=== PATIENT | male | born 1950 | race Caucasian/White ===

== ENCOUNTER → 2021-10-29 09:06 | Outpatient (BNVA) | payer MEDICARE, SELFPAY | PROVIDERS: PCP Internal Medicine; Visit Provider Internal Medicine Cardiovascular Disease | DX: I48.0 Paroxysmal atrial fibrillation (principal); I10 Essential (primary) hypertension; Z79.899 Other long term (current) drug therapy | CPT/HCPCS: 93005; 99202 ==

== ENCOUNTER → 2021-12-01 14:19 | Outpatient (REF) | payer MEDICARE, SELFPAY ==
--- NOTE | 2021-12-01 14:28 | CA_ITS ---
Transthoracic Echocardiogram Patient (Last, First, Middle): Konstantin Quintero, Gender: Male Date of : 1950 Age: 71 Procedure Date: 12/01/2021 Procedure Type: Transthoracic Echocardiogram Location: OP Height: 177.8 cm Weight: 99.79 kg BSA: 2.17 m2 Heart Rate: 94 bpm BP: 117 / 85 mmHg Patient Financial Counselor: TOMI Referring MD: Demario Stanford MD Linux Engineer: Demario Stanford MD Symptoms: I48.0 - Paroxysmal atrial fibrillation Study Quality: Adequate ECG Rhythm: Atrial Fibrillation Conclusions: - Normal left ventricular size and systolic function. There is mildly increased left ventricular wall thickness. The visually estimated ejection fraction is between 55-60%. - Normal right ventricular cavity size and systolic function. - The left atrium is mildly dilated. The right atrium is normal in size. Findings Left Ventricle Normal left ventricular size and systolic function. There is mildly increased left ventricular wall thickness. The visually estimated ejection fraction is between 55-60%. There is no evidence of regional wall motion abnormalities. Diastolic function is indeterminate on the basis of available data. Right Ventricle Normal right ventricular cavity size and systolic function. Atria The left atrium is mildly dilated. The right atrium is normal in size. Aortic Valve Normal aortic valve structure and function. There is no aortic valve stenosis. There is no aortic valve regurgitation. Mitral Valve Normal mitral valve structure and function. There is trace mitral valve regurgitation. There is no mitral valve stenosis. Pulmonic Valve The pulmonic valve is likely normal. There is no pulmonic valve regurgitation. Tricuspid Valve Normal tricuspid valve structure. There is trace tricuspid valve regurgitation. Normal right atrial pressure. There is no evidence of pulmonary hypertension. Great Vessels All visible segments of the aorta are normal in size. The visualized portions of the pulmonary artery and branches are normal. Venous The inferior vena cava is normal in size and collapses greater than 50% with inspiration. Pericardium/Pleural There is no evidence of pericardial effusion. Prior Study Comparison No prior study available for comparison. Measurements 2D Linear Measurements IVSd: 1.13 0.6-0.9/0.6-1.0 cm LVIDd: 3.91 3.9-5.3/4.2-5.9 cm LVIDd Index: 1.80 2.4-3.2/2.2-3.1 cm/m2 LVIDs: 2.81 2.0-3.6 cm LVPWd: 1.17 0.7-1.1 cm LA Diam: 3.90 2.7-3.8/3.0-4.0 cm LAIDs Index: 1.80 1.5-2.3 cm/m2 LV Mass: 186.89 67-162/88-224 g LV Mass Index: 86.13 43-95/49-115 g/m2 LVOT Diam: 2.10 3.0+(-)1.3 cm 2D Systolic Function EF 4C: 45.90 >55% EF 2C: 55.90 >55% EF BiP: 50.60 >55% Aortic Valve AoV Pk Wallace: 1.24 AoV Mn Wallace: 0.87 AoV VTI: 0.20 AoV Pk Grad: 6.00 Aov Mn Grad: 3.00 NATALIE Cont.VTI: 2.96 LVOT LVOT Pk Wallace: 0.98 LVOT Mn Wallace: 0.71 LVOT VTI: 0.17 LVOT Pk Grad: 4.00 LVOT Mn Grad: 2.00 LVOT Diam: 2.10 LVOT Area: 3.46 Right Ventricle TAPSE (mm): 20.30 TVS' Wallace: 10.60 Tricuspid Valve TR Pk Wallace: 2.09 TR Pk Grad: 17.00 RA Press: 3.00 RVSP: 20.00 Great Vessels Aorta Sinus of Valsalva: 3.30 2.0-3.5 cm Ao Asc: 3.40 2.1-3.4 cm Pulmonary Valve PV Pk Wallace: 0.78 Peak PV Grad: 2.00 Updated in Other Vendor System with Status of Final Demario Stanford MD electronically signed on 12/02/2021 2:57:17 PM with status of Final
== END ==
LOC: HO.CARD 14:19
PROVIDERS: PCP Internal Medicine; Visit Provider Internal Medicine Cardiovascular Disease
DX: I48.0 Paroxysmal atrial fibrillation (principal)
CPT/HCPCS: 93306

== ENCOUNTER → 2022-02-08 14:43 | Outpatient (BNVA) | payer MEDICARE, SELFPAY | PROVIDERS: PCP Internal Medicine; Visit Provider Internal Medicine Cardiovascular Disease | DX: I48.0 Paroxysmal atrial fibrillation (principal); I10 Essential (primary) hypertension | CPT/HCPCS: 99212 ==

== ENCOUNTER → 2022-09-27 13:36 | Outpatient (BNVA) | payer MEDICARE, BC, SELFPAY | PROVIDERS: PCP Internal Medicine; Referring Provider Internal Medicine; Visit Provider Internal Medicine Cardiovascular Disease | DX: I48.19 Other persistent atrial fibrillation (principal); I10 Essential (primary) hypertension | CPT/HCPCS: 93005; 99212 ==

== ENCOUNTER 2023-04-06 13:46 | Outpatient (AMB) | payer MEDICARE, BC, SELFPAY ==
[2023-04-06 14:14] VITALS: BP 110/60; PULSE 108; BMI 31.9
--- NOTE | 2023-04-06 14:14 | A.OFFVIS_ITS ---
Intake Vital Signs 04/06/23 14:14 Height 5 ft 10 in Weight 222 lb 10.67 oz BMI 31.9 BP 110/60 Blood Pressure Location Lt brachial Position Sitting Pulse 108 H Intake Visit Reasons: 6 month follow up Intake Note: 6 month follow up Cyber Incident Analyst Required: No Accompanied by: Spouse Allergies Penicillins Adverse Reaction (Severe, Verified 04/06/23 14:14) Unresponsive Medication List - Last Reconciled 04/06/23 by Demario Stanford MD apixaban (Eliquis) 5 mg PO BID epinephrine IM hydrochlorothiazide 12.5 mg PO QAM ibuprofen 600 mg PO TID PRN lisinopril 30 mg PO DAILY metoprolol tartrate 12.5 mg (1/2 x 25 mg) PO BID omeprazole 20 mg PO QAM HPI HPI Comments History of Present Illness Details 72-year-old gentleman with background hi story of hypertension who was referred to us for new diagnosis of atrial fibrillation. He developed nausea vomiting and abdominal discomfort. He went to the urgent care where EKG showed atrial fibrillation. He was asymptomatic from atrial fibrillation point of view. He was started on metoprolol and apixaban. He denies chest discomfort, shortness of breath or any symptoms/signs of heart failure. We sent him for echocardiography which showed ejection fraction of 55-60%. On follow-up he continues to be stable and has no symptoms. Blood pressure control is good. Taking medications regularly. We decided to treat him with rate control strategy. He returns for follow-up after many months and continues to be asymptomatic. No chest discomfort shortness of breath. No palpitations. No orthopnea PND. No peripheral edema. 04/06/2023: He returns for follow-up. Anam gaona had infection in his gums and teeth and had pus with bleeding recently. He has seen dentist and he has been told that he needs multiple teeth extracted. Being on apixaban he has been told that he needs to hold it for 2 weeks by 1 office and 1 week by another dental office. He is saying that he is quite anxious about this because he wants his teeth to be removed specially with infection. He has been taking apixaban 5 mg twice a day. Previously had an echocardiogram which showed normal biventricular function. No clinical symptoms of heart failure. [facility] Surgical History History of herniorrhaphy History of total hip arthroplasty Family History Mother Afib Cancer Father Cancer Leukemia Social History Alcohol intake: former Year quit: 2013 Patient Tobacco Use Status: Former Tobacco user Quit Date: 2006 Physical Exam Vital Signs: Last Vital Signs Pulse 108 H 04/06/23 14:14 BP 110/60 04/06/23 14:14 BMI result Body Mass Index 31.9 GENERAL APPEARANCE: in no acute distress, pleasant. NECK: no carotid bruit, no jugular venous distention. SKIN: no suspicious lesions, warm and dry. HEART: no murmurs, irregularly irregular rhythm. LUNGS: clear to auscultation bilaterally. ABDOMEN: soft, nontender. EXTREMITIES: no edema. PERIPHERAL PULSES: equal. NEUROLOGIC: No gross deficits, AAO X 3 Assessment & Plan Assessment & Plan (1) Persistent atrial fibrillation: Code(s): I48.19 - Other persistent atrial fibrillation (2) Essential hypertension: Code(s): I10 - Essential (primary) hypertension Plan Pleasant 72-year-old gentleman who is here for follow-up. He has persistent atrial fibrillation. He is asymptomatic. Blood pressure control is good. He is slightly fast today but quite anxious due to dental infection. I think he should have dental workup done and his teeth extracted. I think holding anticoagulation for 3 days should be enough for that as we do vascular procedures only after holding 48 hours of anticoagulation. Holding it long-term may decrease bleeding risk but it also increases his stroke risk. I do not think he needs bridging with Lovenox currently. Follow-up with us in few months. Thank you for allowing me to participate in the care of your patient. Please feel free to contact me if you have any questions. Coding Level of Care Code Est Pt Level 4 (79876) Diagnoses Persistent atrial fibrillation I48.19 Essential hypertension I10
== END 2023-04-06 14:42 | disposition home or self-care (01) ==
PROVIDERS: PCP Internal Medicine; Visit Provider Internal Medicine Cardiovascular Disease
DX: I48.19 Other persistent atrial fibrillation (principal); I10 Essential (primary) hypertension
CPT/HCPCS: 99214

== ENCOUNTER → 2023-04-06 13:46 | Outpatient (BNVA) | payer MEDICARE, BC, SELFPAY | PROVIDERS: PCP Internal Medicine; Visit Provider Internal Medicine Cardiovascular Disease | DX: I48.19 Other persistent atrial fibrillation (principal); I10 Essential (primary) hypertension | CPT/HCPCS: 99212 ==

== ENCOUNTER 2023-07-18 13:30 | Outpatient (AMB) | payer MEDICARE, BC, SELFPAY ==
--- NOTE | 2023-07-18 13:44 | A.OFFVIS_ITS ---
Intake Vital Signs 07/18/23 13:45 Height 5 ft 10 in Weight 225 lb 4.999 oz BMI 32.3 BP 112/62 Blood Pressure Location Lt brachial Position Sitting Pulse 86 Pulse Source Pulse Oximeter Intake Visit Reasons: 3 mth f/up Intake Note: pt states that he is doing fine. Industrial Pharmacist Required: No Accompanied by: Self / Same As Patient Allergies Penicillins Adverse Reaction (Severe, Verified 04/06/23 14:14) Unresponsive Medication List - Last Reconciled 07/18/23 by Demario Stanford MD apixaban (Eliquis) 5 mg PO BID epinephrine IM hydrochlorothiazide 12.5 mg PO QAM ibuprofen 600 mg PO TID PRN lisinopril 30 mg PO DAILY metoprolol tartrate 12.5 mg (1/2 x 25 mg) PO BID omeprazole 20 mg PO QAM HPI HPI Comments History of Present Illness Details 72-year-old gentleman with background hi story of hypertension who was referred to us for new diagnosis of atrial fibrillation. He developed nausea vomiting and abdominal discomfort. He went to the urgent care where EKG showed atrial fibrillation. He was asymptomatic from atrial fibrillation point of view. He was started on metoprolol and apixaban. He denies chest discomfort, shortness of breath or any symptoms/signs of heart failure. We sent him for echocardiography which showed ejection fraction of 55-60%. On follow-up he continues to be stable and has no symptoms. Blood pressure control is good. Taking medications regularly. We decided to treat him with rate control strategy. He returns for follow-up after many months and continues to be asymptomatic. No chest discomfort shortness of breath. No palpitations. No orthopnea PND. No peripheral edema. 04/06/2023: He returns for follow-up. Anam gaona had infection in his gums and teeth and had pus with bleeding recently. He has seen dentist and he has been told that he needs multiple teeth extracted. Being on apixaban he has been told that he needs to hold it for 2 weeks by 1 office and 1 week by another dental office. He is saying that he is quite anxious about this because he wants his teeth to be removed specially with infection. He has been taking apixaban 5 mg twice a day. Previously had an echocardiogram which showed normal biventricular function. No clinical symptoms of heart failure. 07/18/2023: He returns for follow-up. He had initial workup and has been doing well. He is on apixaban 5 mg twice a day and metoprolol 12.5 mg twice a day. His heart rate is in 80s blood pressure is 112/62. Clinically he is denying any symptoms right now. He had blood workup recently which was also essentially normal. His LDL cholesterol was 110 and I have advised him to continue to diet and exercise. [facility] Surgical History History of herniorrhaphy History of total hip arthroplasty Family History Mother Afib Cancer Father Cancer Leukemia Social History Alcohol intake: former Year quit: 2013 Patient Tobacco Use Status: Former Tobacco user Quit Date: 2006 Review of Systems Const Denies chills, Denies fatigue, Denies fever(s), Denies frequent falls, Denies weakness, Denies weight gain and Denies weight loss ENT Denies dizziness Card Denies chest pain, Denies leg edema, Denies lightheadedness, Denies palpitations, Denies dyspnea and Denies dyspnea on exertion Resp Denies cough, Denies dyspnea and Denies dyspnea on exertion GI Denies hematochezia Musc Denies abnormal gait, Denies muscle weakness, Denies numbness, Denies radiating pain into limb and Denies tingling Neuro Denies abnormal gait, Denies dizziness, Denies frequent falls, Denies numbness, Denies tingling and Denies weakness Endo Denies fatigue and Denies palpitations Physical Exam Vital Signs: Last Vital Signs Pulse 86 07/18/23 13:45 BP 112/62 07/18/23 13:45 BMI result Body Mass Index 32.3 GENERAL APPEARANCE: in no acute distress, pleasant. NECK: no carotid bruit, no jugular venous distention. SKIN: no suspicious lesions, warm and dry. HEART: no murmurs, irregularly irregular rhythm. LUNGS: clear to auscultation bilaterally. ABDOMEN: soft, nontender. EXTREMITIES: no edema. PERIPHERAL PULSES: equal. NEUROLOGIC: No gross deficits, AAO X 3 Assessment & Plan Assessment & Plan (1) Persistent atrial fibrillation: Code(s): I48.19 - Other persistent atrial fibrillation (2) Essential hypertension: Code(s): I10 - Essential (primary) hypertension Plan Pleasant 72 year gentleman who is here for follow-up. He has background history of persistent atrial fibrillation. He is asymptomatic from AFib and currently we are taking a rate control strategy. His blood pressure is not high and he is on metoprolol 12.5 mg twice a day but his heart rate is reasonably controlled. Echocardiography has shown normal biventricular function with mild left atrial dilatation in the past. Clinically he has been doing well. Continue same medications for now. Occasionally he uses ibuprofen but that has not a daily thing and he can try it I have advised him that he should use more Tylenol for aches and pains and ibuprofen. Follow-up with us in 4 months. Thank you for allowing me to participate in the care of your patient. Please feel free to contact me if you have any questions. Coding Level of Care Code Est Pt Level 4 (67889) Diagnoses Persistent atrial fibrillation I48.19 Essential hypertension I10
[2023-07-18 13:45] VITALS: BP 112/62; PULSE 86; BMI 32.3
== END 2023-07-18 14:14 | disposition home or self-care (01) ==
PROVIDERS: PCP Internal Medicine; Visit Provider Internal Medicine Cardiovascular Disease
DX: I48.19 Other persistent atrial fibrillation (principal); I10 Essential (primary) hypertension
CPT/HCPCS: 99214

== ENCOUNTER → 2023-07-18 | Outpatient (BNVA) | payer MEDICARE, BC, SELFPAY | PROVIDERS: PCP Internal Medicine; Visit Provider Internal Medicine Cardiovascular Disease | DX: I48.19 Other persistent atrial fibrillation (principal); I10 Essential (primary) hypertension | CPT/HCPCS: 99212 ==

== ENCOUNTER 2024-04-23 12:42 | Outpatient (AMB) | payer MEDICARE, BC, SELFPAY ==
[2024-04-23 13:20] VITALS: BP 120/66; PULSE 81; BMI 29.9
--- NOTE | 2024-04-23 13:20 | A.OFFVIS_ITS ---
Vital Signs 04/23/24 13:20 Height 5 ft 10 in Weight 208 lb 8.917 oz BMI 29.9 BP 120/66 Blood Pressure Location Lt brachial Position Sitting Pulse 81 Pulse Source Monitor Intake Visit Reasons: r/s 11/30/23 4 mos followup Intake Note: 4 mth f/up Digital Developer Required: No Accompanied by: Self / Same As Patient Allergies Penicillins Adverse Reaction (Severe, Verified 04/06/23 14:14) Unresponsive Medication List - Last Reconciled 04/23/24 by Demario Stanford MD apixaban (Eliquis) 5 mg PO BID epinephrine IM hydrochlorothiazide 12.5 mg PO QAM ibuprofen 600 mg PO TID PRN lisinopril 30 mg PO DAILY metoprolol tartrate 12.5 mg (1/2 x 25 mg) PO BID omeprazole 20 mg PO QAM HPI Comments Details: 73-year-old gentleman with background history of hypertension who was referred to us for new diagnosis of atrial fibrillation. He developed nausea vomiting and abdominal discomfort. He went to the urgent care where EKG showed atrial fibrillation. He was asymptomatic from atrial fibrillation point of view. He was started on metoprolol and apixaban. He denies chest discomfort, shortness of breath or any symptoms/signs of heart failure. We sent him for echocardiography which showed ejection fraction of 55-60%. On follow-up he continues to be stable and has no symptoms. Blood pressure control is good. Taking medications regularly. We decided to treat him with rate control strategy. He returns for follow-up after many months and continues to be asymptomatic. No chest discomfort shortness of breath. No palpitations. No orthopnea PND. No peripheral edema. 04/06/2023: He returns for follow-up. He had infection in his gums and teeth and had pus with bleeding recently. He has seen dentist and he has been told that he needs multiple teeth extracted. Being on apixaban he has been told that he needs to hold it for 2 weeks by 1 office and 1 week by another dental office. He is saying that he is quite anxious about this because he wants his teeth to be removed specially with infection. He has been taking apixaban 5 mg twice a day. Previously had an echocardiogram which showed normal biventricular function. No clinical symptoms of heart failure. 07/18/2023: He returns for follow-up. He had initial workup and has been doing well. He is on apixaban 5 mg twice a day and metoprolol 12.5 mg twice a day. His heart rate is in 80s blood pressure is 112/62. Clinically he is denying any symptoms right now. He had blood workup recently which was also essentially normal. His LDL cholesterol was 110 and I have advised him to continue to diet and exercise. 04/23/2024: He is here for follow-up. You medications regularly. No symptoms on follow-up. He is due to get colonoscopy and is asking whether he can hold the Eliquis for 48 hours. [facility] Surgical History History of herniorrhaphy History of total hip arthroplasty Family History Mother Afib Cancer Father Cancer Leukemia Social History Alcohol intake: former Year quit: 2013 Patient Tobacco Use Status: Former Tobacco user Review of Systems Const Denies chills, Denies fatigue, Denies fever(s), Denies frequent falls, Denies weakness, Denies weight gain and Denies weight loss ENT Denies dizziness Card Denies chest pain, Denies leg edema, Denies lightheadedness, Denies palpitations, Denies dyspnea and Denies dyspnea on exertion Resp Denies cough, Denies dyspnea and Denies dyspnea on exertion GI Denies hematochezia Musc Denies abnormal gait, Denies muscle weakness, Denies numbness, Denies radiating pain into limb and Denies tingling Neuro Denies abnormal gait, Denies dizziness, Denies frequent falls, Denies numbness, Denies tingling and Denies weakness Endo Denies fatigue and Denies palpitations Physical Exam Vital Signs: Last Vital Signs Pulse 81 04/23/24 13:20 BP 120/66 04/23/24 13:20 BMI result Body Mass Index 29.9 GENERAL APPEARANCE: in no acute distress, pleasant. NECK: no carotid bruit, no jugular venous distention. SKIN: no suspicious lesions, warm and dry. HEART: no murmurs, irregularly irregular rhythm. LUNGS: clear to auscultation bilaterally. ABDOMEN: soft, nontender. EXTREMITIES: no edema. PERIPHERAL PULSES: equal. NEUROLOGIC: No gross deficits, AAO X 3 Office Procedures EKG Details: Atrial fibrillation 81 beats per minute, normal axis, QTC 418 millisecond. [id number], Complete Assessment & Plan Assessment & Plan (1) Persistent atrial fibrillation: Code(s): I48.19 - Other persistent atrial fibrillation Category: Medical (2) Essential hypertension: Code(s): I10 - Essential (primary) hypertension Category: Medical Plan 73-year-old gentleman who is here for follow-up. He has persistent atrial fibrillation. He is asymptomatic. Blood pressure is well controlled. He is on metoprolol and lisinopril along with hydrochlorothiazide. He is on apixaban for anticoagulation. No bleeding. He wants to undergo colonoscopy. He is intermediate risk for perioperative complications. He can hold the Eliquis for 48 hours. Follow-up with us in 6 months. Thank you for allowing me to participate in the care of your patient. Please feel free to contact me if you have any questions. Coding Level of Care Code Est Pt Level 4 (15017) Diagnoses Persistent atrial fibrillation I48.19 Essential hypertension I10 CPT Codes EKG - CPT: 35603-[id number], Complete ([id number])
--- OUTSIDE RECORDS SUMMARY | 2024-04-23 14:36 | XMS_ITS ---
Author Name [facility] [place] [facility] [facility] [place] Address [address] [place] [address] Support Name Relationship Address Phone DAVID CAMPBELL V Next of [address] ; [place], [place] [phone] DAVID CAMPBELL V Emergency Contact [address] [facility];[address] KATIE BARRIOS [phone] Insurance Providers: All historical and current Section Date Range: From patient's date of to the date document was created. This section includes the names of all active insurance providers for the patient. Insurance Provider Type of Coverage Plan Name Start of Policy Coverage End of Policy Coverage Group Number Member ID Insurance Provider's Telephone Number Policy Mulligan's Name Patient's Relationship to Policy Mulligan [place]FA[place] [facility] Apr 18, 2022 [id number] [phone] Chloe CAMPBELL PATIENT [place] RAFAEL MEDEX 2 Dec 17, 2014 [id number] Chloe CAMPBELL PATIENT [place]FA[place] MEDEX 2 Dec 17, 2014 [id number] Chloe CAMPBELL PATIENT BC[facility] OF [facility] Dec 18, 2011 [id number] Chloe CAMPBELL PATIENT [facility] [place] 1997 [id number] Chloe CAMPBELL W. PATIENT MEDICARE (R) MEDICARE (M) PART B Nov 16, 2014 PART B [id number] Chloe CAMPBELL PATIENT MEDICARE (WNR) MEDICARE (M) PART B Nov 16, 2014 PART B [id number] Chloe CAMPBELL PATIENT MEDICARE (WNR) MEDICARE (M) PART A Oct 16, 2014 PART A [id number] [phone] Chloe CAMPBELL PATIENT MEDICARE (WNR) MEDICARE (M) PART A Oct 16, 2014 PART A [id number] Chloe CAMPBELL PATIENT Selected Encounter This section includes the information on record at [place] for the Encounter. Date/Time Encounter Type Encounter Description Reason Provider Source Apr 03, 2024 02:06 PM FIT SPECTACLES MONOFOCAL OPTOMETRY ICD-10-CM Z46.0 Encounter for fit/adjst of spectacles and contact lenses CATHI ADKINS Brynn Encounter Template Text not used by [place] Assessments - Encounter Diagnoses This section includes the primary and secondary diagnoses documented for the Encounter. Date/Time Primary/Secondary Diagnosis Diagnosis Name Provider Source Apr 03, 2024 02:06 PM PRIMARY Encounter for fit/adjst of spectacles and contact lenses ACOSTA PATTERSON [place] [facility] Advance Directives: All historical and current Section Date Range: From patient's date of to the date document was created. This section includes ALL of a patient's completed or amended [place] Advance and Rescinded Directives. The entries below indicate that a directive exists for the patient, but an actual copy is not included with this document. The data comes from all [place] facilities. Date Advance Directives Provider Source Oct 10, 2013 ADVANCE DIRECTIVE DISCUSSION SHANEL BATES [facility] Encounter Notes: All associated encounter notes This section contains the clinical notes associated to the Encounter. Date/Time Encounter Note(s) Provider Source Apr 03, 2024 02:06 PM OPTOMETRY NOTE: LOCAL TITLE: OPTOMETRY NOTE STANDARD TITLE: OPTOMETRY NOTE DATE OF NOTE: APR 03, 2024@14:06 ENTRY DATE: APR 03, 2024@14:06:37 AUTHOR: GLENNY LEMONS COSIGNER: URGENCY: STATUS: COMPLETED OPTOMETRY NOTE Has ADDENDA Adjusted one pair clear. Declined sunglass adjustment. The quote provided below is for informational purposes only. Please verify prior to the creation of a purchase order. SHERRI CAMPBELL 0348 RX INFORMATION OD +3.50 -2.75 X83 Add:0.00 Pzm:0.00 Dir: Prz2:0.00 Dir2: OS +1.25 -1.25 X40 Add:0.00 Pzm:0.00 Dir: Prz2:0.00 Dir2: FITTING INFORMATION FPD: NPD: Guadalupe:R:30.5 L:31.0 SEG HT:R: L: Tint:None Shade:None VA Billable Items FRAME: FX27 GOLD [id number] Right Lens: PLASTIC SINGLE VISION CLEAR 1.498 PLASTIC CR39 Left Lens: PLASTIC SINGLE VISION CLEAR 1.498 PLASTIC CR39 CLIN items 0001 - Single Vision - Glass Plastic Poly The quote provided below is for informational purposes only. Please verify prior to the creation of a purchase order. SHERRI CAMPBELL 0348 RX INFORMATION OD +1.00 -2.75 X83 Add:0.00 Pzm:0.00 Dir: Prz2:0.00 Dir2: OS -1.25 -1.25 X40 Add:0.00 Pzm:0.00 Dir: Prz2:0.00 Dir2: FITTING INFORMATION FPD: NPD: Guadalupe:R:33.5 L:34.5 SEG HT:R: L: Tint:SHULTZ Shade:3 VA Billable Items FRAME: [place] GOLD 58-39-150 Right Lens: PLASTIC SINGLE VISION CLEAR 1.498 PLASTIC CR39 Left Lens: PLASTIC SINGLE VISION CLEAR 1.498 PLASTIC CR39 UV400 SOLID TINT CLIN items 0001 - Single Vision - Glass Plastic Poly The quote provided below is for informational purposes only. Please verify prior to the creation of a purchase order. SHERRI CAMPBELL 0348 RX INFORMATION OD +1.00 -2.75 X83 Add:0.00 Pzm:0.00 Dir: Prz2:0.00 Dir2: OS -1.25 -1.25 X40 Add:0.00 Pzm:0.00 Dir: Prz2:0.00 Dir2: FITTING INFORMATION FPD: NPD: Guadalupe:R:33.5 L:34.5 SEG HT:R: L: Tint:None Shade:None VA Billable Items FRAME: ANJELICA CROCKER 58-18-150 Right Lens: PLASTIC SINGLE VISION CLEAR 1.498 PLASTIC CR39 Left Lens: PLASTIC SINGLE VISION CLEAR 1.498 PLASTIC CR39 CLIN items 0001 - Single Vision - Glass Plastic Poly /yodit/ GLENNY LEMONS FOOD SAFETY MANAGER Signed: 04/03/2024 14:12 Receipt Acknowledged By: 04/03/2024 14:20 /yodit/ Acosta Patterson Optometry Health Materials Manager 04/03/2024 ADDENDUM STATUS: COMPLETED PDS Cable Maker fit patient with 3 pair(s) of sv eyeglasses on 04/03/2024. OPT HT entered consult(s) as requested for provider signature. /yodit/ Acosta Patterson Optometry Health Materials Manager Signed: 04/03/2024 14:22 GLENNY LEMONS [facility]
--- OUTSIDE RECORDS SUMMARY | 2024-04-23 14:36 | XMS_ITS | Encounter Summary ---
Author Name [facility] [place] [facility] [place] Address [address] [place] [address] Support Name Relationship Address Phone DAVID CAMPBELL V Next of [facility] ; [place], [place] [phone] DAVID CAMPBELL V Emergency Contact [address] [facility];LOT F-[address] [place] BARRIOS [phone] Insurance Providers: All historical and current Section [...] Name Patient's Relationship to Policy Mulligan [place] MED[place] SUPPLEMEN RAFAEL [facility] Apr 18, 2022 [id number] Chloe CAMPEBLL PATIENT [place] SUPPLEMEN RAFAEL MEDEX 2 Dec 17, 2014 [id number] Chloe CAMPBELL [place]FA[place] MEDEX 2 Dec 17, 2014 [id number] [phone] Chloe CAMPBELL PATIENT BCBS OF [facility] Dec 18, 2011 [id number] Chloe CAMPBELL PATIENT [facility] ORGAN[facility] Apr 22, 1997 [id number] Chloe CAMPBELL W. PATIENT MEDICARE (R) MEDICARE (M) PART B Nov 16, 2014 PART B [id number] Chloe CAMPBELL PATIENT MEDICARE (WNR) MEDICARE (M) PART B Nov 16, 2014 PART B [id number] Chloe CAMPBELL PATIENT MEDICARE (WNR) MEDICARE (M) PART A Oct 16, 2014 PART A [id number] Chloe CAMPBELL PATIENT MEDICARE (WNR) MEDICARE (M) PART A Oct 16, 2014 PART A [id number] Chloe CAMPBELL PATIENT Selected Encounter This section includes the information on record at CT for the Encounter. Date/Time Encounter Type Encounter Description Reason Provider Source Apr 03, 2024 01:15 PM CMPTR OPHTH IMG OPTIC NERVE OPTOMETRY ICD-10-CM H40.013 Open angle with borderline findings, low risk, bilateral CATHI ADKINS E Encounter Template Text not used by [facility] Assessments - Encounter Diagnoses This section includes the primary and secondary diagnoses documented for the Encounter. Date/Time Primary/Secondary Diagnosis Diagnosis Name Provider Source Apr 03, 2024 02:01 PM PRIMARY Open angle with borderline findings, low risk, bilateral CATHI ADKINS [facility] Advance Directives: All historical and current Section Date Range: From patient's date of to the date document was created. This section includes ALL of a patient's completed or amended VA Advance and Rescinded Directives. The entries below indicate that a directive exists for the patient, but an actual copy is not included with this document. The data comes from all [place] facilities. Date Advance Directives Provider Source Oct 10, 2013 ADVANCE DIRECTIVE DISCUSSION SHANEL BATES AM [facility] Encounter Notes: All associated encounter notes This section contains the clinical notes associated to the Encounter. Date/Time Encounter Note(s) Provider Source Apr 03, 2024 01:47 PM OPTOMETRY CONSULT: LOCAL TITLE: CONSULT REPORT/OPTOMETRY OCT STANDARD TITLE: OPTOMETRY CONSULT DATE OF NOTE: APR 03, 2024@13:47 ENTRY DATE: APR 03, 2024@13:47:59 AUTHOR: CATHI ADKINS EXP COSIGNER: URGENCY: STATUS: COMPLETED S: Review of RNFL OCT of patient considered low-risk open angle glaucoma OU suspect secondary to moderate cupping OU O: RNFL OCT ran by crime scene evidence technician A: OCT of right eye shows borderline thinning inferior with all other quadrants WNL, disc area of 3.65, average CDR of 0.75 and vertical CDR of 0.60, average RNFL thickness of 74??m. Appears to have defect on scanning due to movement. OCT of left eye shows borderline thinning inferior and temporal with all other quadrants WNL, disc area of 2.10, average CDR of 0.69 and vertical CDR of 0.64, average RNFL thickness of 69??m. RNFL symmetry 62%. P: Keep follow-up as scheduled, ed re today's findings. [place] repeated back the plan and education. /yodit/ CATHI ADKINS OD SERVICE LINE COORDINATOR Signed: 04/03/2024 14:01 CATHI ADKINS [facility]
--- OUTSIDE RECORDS SUMMARY | 2024-04-23 14:36 | XMS_ITS | Encounter Summary ---
Author Name [facility] [place] [facility] [place] [facility] [place] Address [address] [place] [id number] Support Name Relationship Address Phone DAVID CAMPBELL V Next of Kin [facility] ; [place] [phone] DAVID CAMPBELL V Emergency Contact [address] [facility];L[address] F-[address] [place]RI[place] [address] Insurance Providers: All historical and current Section [...] to Policy Mulligan [place] MEDICARE SUPPLEMEN [facility] Apr 18, 2022 [id number] Chloe CAMPBELL PATIENT [place] MEDICARE SUPPLEMEN RAFAEL MEDEX 2 Dec 17, 2014 [id number] [phone] Chloe CAMPBELL [place] SUPPLEMEN RAFAEL MEDEX 2 Dec 17, 2014 [id number] [phone] Chloe CAMPBELL PATIENT BCBS OF [facility] Dec 18, 2011 [id number] Chloe CAMPBELL PATIENT [facility] Apr 22, 1997 [id number] [phone] Chloe CAMPBELL W. PATIENT MEDICARE (R) MEDICARE (M) PART B Nov 16, 2014 PART B [id number] Chloe CAMPBELL PATIENT MEDICARE (WNR) MEDICARE (M) PART B Nov 16, 2014 PART B [id number] [phone] Chloe CAMPBELL PATIENT MEDICARE (WNR) MEDICARE (M) PART A Oct 16, 2014 PART A [id number] Chloe CAMPBELL PATIENT MEDICARE (WNR) MEDICARE (M) PART A Oct 16, 2014 PART A [id number] Chloe CAMPBELL PATIENT Selected Encounter This section includes the information on record at [place] for the Encounter. Date/Time Encounter Type Encounter Description Reason Provider Source Apr 03, 2024 01:00 PM EXTENDED VISUAL FIELD XM OPTOMETRY ICD-10-CM H40.013 Open angle with borderline findings, low risk, bilateral CATHI ADKINS [facility] Encounter Template Text not used by VA Assessments - Encounter Diagnoses This section includes the primary and secondary diagnoses documented for the Encounter. Date/Time Primary/Secondary Diagnosis Diagnosis Name Provider Source Apr 03, 2024 01:59 PM PRIMARY Open angle with borderline findings, low risk, bilateral CATHI ADKINS [place] [facility] Advance Directives: All historical and current Section Date Range: From patient's date of to the date document was created. This section includes ALL of a patient's completed or amended VA Advance and Rescinded Directives. The entries below indicate that a directive exists for the patient, but an actual copy is not included with this document. The data comes from all [place] facilities. Date Advance Directives Provider Source Oct 10, 2013 ADVANCE DIRECTIVE DISCUSSION SHANEL BATES AM [place] [facility] Encounter Notes: All associated encounter notes This section contains the clinical notes associated to the Encounter. Date/Time Encounter Note(s) Provider Source Apr 03, 2024 01:42 PM OPTOMETRY CONSULT: LOCAL TITLE: CONSULT REPORT/OPTOMETRY VISUAL FIELD STANDARD TITLE: OPTOMETRY CONSULT DATE OF NOTE: APR 03, 2024@13:42 ENTRY DATE: APR 03, 2024@13:42:12 AUTHOR: CATHI ADKINS EXP COSIGNER: URGENCY: STATUS: COMPLETED S: Review of HVF 24-2 of patient considered low-risk open angle glaucoma suspect OU secondary to moderate cupping OU O: HVF 24-2 ran by microbiology technician A: Visual field of right eye reliable with 2/10 fixation losses, 0% FP errors and 0% FN errors, GHT ONL, VFI 96%, visual field shows essentially full field on total deviation with nonspecific central depression on pattern deviation without evidence of glaucomatous damage. Visual field of left eye reliable with 4/10 fixation losses, 6% FP errors and 1% FN errors, GHT Borderline, VFI 97%, visual field shows nonspecific defect without evidence of glaucomatous damage. P: Keep follow-up as scheduled. Ed re today's findings. repeated back the plan and education. /yodit/ CATHI ADKINS OD SENIOR WRITER Signed: 04/03/2024 14:01 CATHI ADKINS [facility]
--- OUTSIDE RECORDS SUMMARY | 2024-04-23 14:36 | XMS_ITS | Encounter Summary ---
Author Name [facility] [place] [facility] [place] Address [address] [place] [address] Support Name Relationship Address Phone DAVID CAMPBELL V Next of [facility] ; [place], [place] [phone] DAVID CAMPBELL V Emergency Contact [address] [facility];LOT F-7 KATIE BARRIOS [phone] Insurance Providers: All historical and current Section [...] Name Patient's Relationship to Policy [place] SUPPLEMEN [facility] Apr 18, 2022 [id number] [phone] Chloe CAMPBELL PATIENT [place] SUPPLEMEN RAFAEL MEDEX 2 Dec 17, 2014 [id number] Chloe CAMPBELL PATIENT [place] SUPP[place] RAFAEL MEDEX 2 Dec 17, 2014 [id number] [phone] Chloe CAMPBELL PATIENT BCBS OF [facility] Dec 18, 2011 [id number] Chloe CAMPBELL PATIENT [facility] Apr 22, 1997 [id number] [phone] Chloe CAMPBELL W. PATIENT MEDICARE (R) MEDICARE (M) PART B Nov 16, 2014 PART B [id number] [phone] Chloe CAMPBELL PATIENT MEDICARE (WNR) MEDICARE (M) PART B Nov 16, 2014 PART B [id number] [phone] Chloe CAMPBELL PATIENT MEDICARE (WNR) MEDICARE (M) PART A Oct 16, 2014 PART A [id number] Chloe CAMPBELL PATIENT MEDICARE ([place]) MEDICARE (M) PART A Oct 16, 2014 PART A [id number] Chloe CAMPBELL PATIENT Selected Encounter This section includes the information on record at [place] for the Encounter. Date/Time Encounter Type Encounter Description Reason Provider Source Apr 03, 2024 01:30 PM COMPRE OPH EXAM EST PT 1/> OPTOMETRY ICD-10-CM G45.3 Amaurosis fugax ADKINS,CATHI J E Encounter Template Text not used by [place] Assessments - Encounter Diagnoses This section includes the primary and secondary diagnoses documented for the Encounter. Date/Time Primary/Secondary Diagnosis Diagnosis Name Provider Source Apr 03, 2024 01:40 PM PRIMARY Amaurosis fugax ADKINS,CATHI J [facility] [place] [facility] Apr 03, 2024 01:40 PM SECONDARY Combined forms of age-related cataract, bilateral ADKINS,CATHI J [facility] [place] [facility] Apr 03, 2024 01:40 PM SECONDARY Dry eye syndrome of bilateral lacrimal glands BOWEN ADKINSEY J [facility] [place] [facility] Apr 03, 2024 01:40 PM SECONDARY Open angle with borderline findings, low risk, bilateral ADKINS,CATHI J [facility] [place] [facility] Apr 03, 2024 01:40 PM SECONDARY Presbyopia CATHI [facility]INS [facility] Advance Directives: All historical and current Section Date Range: From patient's date of to the date document was created. This section includes ALL of a patient's completed or amended [place] Advance and Rescinded Directives. The entries below indicate that a directive exists for the patient, but an actual copy is not included with this document. The data comes from all [place] facilities. Date Advance Directives Provider Source Oct 10, 2013 ADVANCE DIRECTIVE DISCUSSION SHANEL BATES [facility] Encounter Notes: All associated encounter notes This section contains the clinical notes associated to the Encounter. Date/Time Encounter Note(s) Provider Source Apr 03, 2024 01:11 PM OPTOMETRY NOTE: LOCAL TITLE: OPTOMETRY NOTE STANDARD TITLE: OPTOMETRY NOTE DATE OF NOTE: APR 03, 2024@13:11 ENTRY DATE: APR 03, 2024@13:11:55 AUTHOR: CATHI ADKINS EXP COSIGNER: URGENCY: STATUS: COMPLETED Eye Examination for: SHERRI CAMPBELL, 73 year old WHITE MALE MHx: Code Description 309.9 Adjustment disorder ([facility] [id number]) 362.34 Amaurosis Fugax (ICD-9-CM 362.34) 388.30 Tinnitus (ICD-9-CM 388.30) 477.9 Allergic rhinitis (ICD-9-CM 477.9) 401.9 Essential hypertension (ICD-9-CM 401.9) SYSTEMIC MEDICATIONS/OCULAR MEDICATIONS: Active Outpatient Medications (including Supplies): Active Non-VA Medications Status 1) Non-VA ASPIRIN 81MG EC TAB 81MG BY MOUTH DAILY ACTIVE 2) Non-VA LISINOPRIL 40MG TAB 40MG BY MOUTH DAILY ACTIVE 3) Non-VA ZOLPIDEM TARTRATE 10MG TAB 10MG BY MOUTH ONCE DAILY ACTIVE NEEDED ALLERGIES: PENICILLIN VITALS (most recent, as listed in the electronic record): B/P: 161/86 (06/22/2013 10:06) Pulse: 77 (06/22/2013 10:06) Temperature: 98.9 F [37.2 C] (06/22/2013 10:06) Weight: 223 lb [101.15 kg] (06/22/2013 10:06) Height: 71 in [180.3 cm] (06/22/2013 10:06) BMI: BMI: 31.2 PERTINENT LABS: HEMOGLOBIN A1C TREND Collection DT Spec HGBA1c 07/21/2011 14:22 BLOOD 5.7 09/22/2010 09:12 BLOOD 5.5 Forward from note, checked by Attending This 73 year old MALE is seen today for Complete eye exam Medical, eye, personal, and social history are all reviewed and is contributory or is not contributory to today's visit. Date of last eye exam:Mar 25 2023 Location: [facility] Chief Complaint:Patient here today for a Complete eye exam. No vision complaints, dont see black spots in os or the tunnel vision has not happen in a while last time was about 6 months ago. Uses Artifical tears every morning and also warm compresses.Patient would like to duplicate frames, if able to adjust current frames lenses are popping out everytime he cleans them. No change in medications or allergies. HISTORY AND REVIEW OF SYSTEMS: OHx/HPI: 1. H/o transient vision loss/amaurosis fugaz OD 2020 c negative systemic work-up 2. Low risk glc susp OU 3. MISSY OU 4. Combined cataract OU (-) Pain: (-) CHANG: (-) Diplopia: (-) Flashes: (-) Floaters: (-) Amaurosis Fugax/Tia's: History of transient vision loss right eye with negative systemic work-up (-) Eye Injury: (-) Eye Surgery: (-) TBI FOHx: (-) Glaucoma/ARMD/Blindness (-) Smoker/Length of Time/PPD: DIABETIC:NO Last A1C: EYE MEDICATION(S): ATs prn daily warm compresses in am VISION AND REFRACTION: Current Rx with last BCVA: OD:+0.25 -2.50 x083 20/20-1 OS:-0.75 -1.00 x040 20/20-1 ADD:+2.50 OU 20/20 PD:70 DVA ( XX )sc ( )cc OD:20/60 OS:20/25- NV OU:20/25 Manifest Refraction (MRx): OD:+1.00 -2.75 x083 20/20-1 OS:-1.25 -1.25 x40 20/20 ADD: +2.50 OU 20/20 Intraocular Pressure (IOP) Method: Icare Time:12:56pm OD:14 OS:15 Pupils: PERRL (-)APD 2.5mm-2.0mm OU EOMs: SAFE OU,(-)Pain/Diplopia CVF(facial, peripheral): FTFC OU ANTERIOR CHAMBER (AC) Penlight or slit lamp (if available) exam appears unremarkable. Pupils are dilated. Dilation and driving precautions reviewed with patient and patient expresses understanding. Medication: 1% Tropicamide, 2.5% Phenylephrine OU Time:1:05pm Visual Imaging Performed Today: HVF and OCT Additional Comments:DVO clear, DVO sun, NVO clear will duplicate frames. Final Rx: OD: +1.00-2.20s803 20/20-1 OS: -1.25-1.58t351 20/20 Add: +2.50 20/20 SLE: Lids/Lashes: dermatochalasis OU Conjunctiva: white and quiet bulbar conj OU quiet palpebral conj OU Corneas: clear OU Iris: flat and clear OU, (-)TID OU AC: D & Q OU Angles: 4X4 OU Previous Pachymetry OD: 603 OS: 619 Dilated Fundus Exam: Vit: syneresis OU Lens: 1-2+ NSC OU, 1+ ACC OD>OS (-)PXF OU C/D (Size and Rim Description) OD 0.65 pink and healthy, no focal notching OS 0.65 pink and healthy, no focal notching (-)Drance heme OU PPole OD clear OS clear Macula OD flat and clear OS flat and clear A/V: normal caliber OU Periphery: flat and intact (-)holes, tears, detachments 360 OU Assessment/Plan: 1. H/o TIA with amaurosis fugax OD 2011 without recurrence. Now followed by sales assistants and salespersons for Afib. -Pt ed re today's findings - repeated back the plan and education. -Monitor 2. Low risk open-angle glaucoma suspect OU. Moderate cupping with normotensive IOP. No evidence of pigment dispersion or pseudoexfoliation OU. No known family history of glaucoma. No change in ONH appearance. Low index of suspicion at present. -Pt ed re today's findings -Pt ed re glaucoma as well as the natural history of this diagnosis including prognosis. -Stress importance of continued follow-up appointments - repeated back the plan and education. -RTC 1 year w/ repeat 3. Dry Eye Syndrome OU - asymptomatic -Pt ed re today's findings -[place] repeated back the plan and education. -Monitor 4. Combined Cataracts OU - not visually significant at present -Pt ed re today's findings and the importance of UV protection -Pt ed cataracts may cause reduction of BCVA and symptoms of glare -RTC sooner if vision declines or interferes with ADLs - repeated back the plan and education. -Monitor 5. Refractive Error and Presbyopia OU -Rx updated and ordered per pt request SVx3 -Monitor RTC 1 yr or earlier PRN (x)Appointment with coordinated visual imaging (x) [facility] 24-2 (x) RNFL OCT Glasses adjusted/repaired in office: () Yes (x) No If yes, how many pairs: Education: Glaucoma: Patient was educated regarding glaucoma/glaucoma suspect as well as the natural history of this diagnosis including prognosis. Stress importance of compliance and persistency with glaucoma medication when prescribed, timely follow up as well as the role of ancillary testing. Exclusion criteria for ancillary testing include significantly reduced acuity, mental status changes affecting the patient's ability to attend to the test or other physical limitations that would prohibit the patient's ability to participate in testing. Medication Reconciliation: Outpatient: Has the patient been taking medications as documented in the EMLR? YES: The patient has been taking medications as documented in the EMLR. Essential Medication List for Review used to complete this medication reconciliation. INCLUDED IN THIS LIST: Alphabetical list of active outpatient prescriptions dispensed from this [facility] (local) and dispensed from another [place] or [place] facility (remote) as well as inpatient orders (local, pending and active), local clinic medications, locally documented non-VA medications, and local prescriptions that have or been discontinued in the past 90 days. - All changes in medications, including all non-VA/Herbal/OTC medications were entered into CPRS. - If there were any medications the patient should no longer take, they were discontinued. - The patient/caregiver was instructed to update this list, discard old lists, and take this list to the next appointment, whether with a VA or non-VA provider. Medication List: JLV Link Data on this list may not be complete. Please check JLV. Allergies/ADRs (Tool #5) FACILITY ALLERGY/ADR -------- [facility] PENICILLIN [facility] PENIC[facility]IN Med. Reconciliation (Tool #1) INCLUDED IN THIS LIST: Alphabetical list of active outpatient prescriptions dispensed from this VA (local) and dispensed from another VA or [facility]D facility (remote) as well as inpatient orders (local pending and active), local clinic medications, locally documented non-VA medications, and local prescriptions that have or been discontinued in the past 90 days. Non-VA Meds Last Documented On: September 08, 2011 NOTE The display of VA prescriptions dispensed from another [place] or [facility] facility (remote) is limited to active outpatient prescription entries matched to National Drug File at the originating site and may not include some items such as investigational drugs, compounds, etc. NOT INCLUDED IN THIS LIST: Medications self-entered by the patient into personal health records (i.e. [facility]) are NOT included in this list. Non-VA medications documented outside this [place], remote inpatient orders (regardless of status) and remote clinic medications are NOT included in this list. The patient and provider must always discuss medications the patient is taking, regardless of where the medication was dispensed or obtained. Non-VA ASPIRIN 81MG EC TAB TAKE ONE TABLET BY MOUTH DAILY OUTPT CARBOXYMETHYLCELLULOSE NA 0.5% OPH SOLN (Status = ) INSTILL 1 DROP INTO EACH EYE FOUR TIMES A DAY FOR DRY EYE Rx# [id number] Last Released: 03/29/23 Qty/Days Supply: Rx Expiration Date: 03/25/24 Refills Remainin Indication: FOR DRY EYE Non-VA LISINOPRIL 40MG TAB TAKE ONE TABLET BY MOUTH DAILY Non-VA ZOLPIDEM TARTRATE 10MG TAB TAKE ONE TABLET BY MOUTH ONCE DAILY NEEDED SUPPLIES PHARMACY TERMS AND POSSIBLE PATIENT ACTIONS INPT = [place] inpatient order IV = [facility] intravenous medication OUTPT = [place] outpatient prescription PHARMACY POSSIBLE PATIENT TERMS EXPLANATION ACTIONS -------- - ACTIVE A prescription that can be If you have refills, filled at the local VA pharmacy. you may request a refill of this prescription from your VA pharmacy. CLINIC A medication you received during If you have questions a visit to a VA clinic or about this medication emergency department. contact your VA healthcare team. DISCONTINUED A prescription your provider has Contact your VA stopped. It is no longer healthcare team if you available to be sent to you or need more of this picked up at the [place] pharmacy medication. window. A prescription which is too old Contact your VA to fill. This does not refer to healthcare team if you the expiration date of the need more of this medication in the container. medication. NON-VA A medication that came from If this medication someplace other than a VA information is pharmacy. This may be a incorrect or out of prescription from either the VA date, please tell your or non VA providers that was VA healthcare team. filled outside the VA. Or, it may be an jvlt-dmt-rpzyflx (OTC), herbal, dietary supplements or sample medication. ON HOLD An active prescription that will Contact your VA not be filled until pharmacy pharmacy when you need resolves the issue. more of this medication. PARKED An active prescription that will Contact your VA not be filled until the patient pharmacy when you need requests it. this medication. PENDING This prescription order has been If you have been sent to the pharmacy for review instructed to start and is not ready yet. this medication now, contact your VA pharmacy. SUSPENDED An active prescription that is Contact your VA not scheduled to be filled yet. pharmacy if you need You should receive it before this medication now. you run out. ==== (x) Printed Medication Reconciliation List Offered and Declined by () Medication Reconciliation List Printed for at Exam () Optometry HT Please Print and Mail Copy of Medication Reconciliation List () AMSA Please Print and Mail Copy of Medication Reconciliation List /es/ CATHI ADKINS OD DIRECTOR OF INTELLIGENCE Signed: 04/03/2024 14:01 CATHI ADKINS [facility] Apr 03, 2024 12:38 PM OPTOMETRY SPECIALIST WOUND CARE NOTE: LOCAL TITLE: OPTOMETRY SPECIALIST WOUND CARE NOTE STANDARD TITLE: OPTOMETRY SPECIALIST WOUND CARE NOTE DATE OF NOTE: APR 03, 2024@12:38 ENTRY DATE: APR 03, 2024@12:38:29 AUTHOR: YENI DAHL EXP COSIGNER: URGENCY: STATUS: COMPLETED Active problems - Computerized Problem List is the source for the followin. Adjustment disorder 2. Amaurosis Fugax 3. Tinnitus * 4. Allergic rhinitis * 5. Essential hypertension 6. Alcohol abuse, unspecified drinking behavior Active Outpatient Medications (including Supplies): Active Non-VA Medications Status 1) Non-VA ASPIRIN 81MG EC TAB 81MG BY MOUTH DAILY ACTIVE 2) Non-VA LISINOPRIL 40MG TAB 40MG BY MOUTH DAILY ACTIVE 3) Non-VA ZOLPIDEM TARTRATE 10MG TAB 10MG BY MOUTH ONCE DAILY ACTIVE NEEDED Allergies: PENICILLIN All medications including those prescribed by outside VA's, community providers, and all OTC meds were reviewed and reconciled with patient to the best of their abilities. This 73 year old MALE is seen today for Complete eye exam Medical, eye, personal, and social history are all reviewed and is contributory or is not contributory to today's visit. Date of last eye exam:Mar 25 2023 Location: [facility] Chief Complaint:Patient here today for a Complete eye exam. No vision complaints, dont see black spots in os or the tunnel vision has not happen in a while last time was about 6 months ago. Uses Artifical tears every morning and also warm compresses.Patient would like to duplicate frames, if able to adjust current frames lenses are popping out everytime he cleans them. No change in medications or allergies. HISTORY AND REVIEW OF SYSTEMS: OHx/HPI: 1. H/o transient vision loss/amaurosis fugaz OD 2020 c negative systemic work-up 2. Low risk glc susp OU 3. MISSY OU 4. Combined cataract OU (-) Pain: (-) CHANG: (-) Diplopia: (-) Flashes: (-) Floaters: (-) Amaurosis Fugax/Tia's: History of transient vision loss right eye with negative systemic work-up (-) Eye Injury: (-) Eye Surgery: (-) TBI FOHx: (-) Glaucoma/ARMD/Blindness (-) Smoker/Length of Time/PPD: DIABETIC:NO Last A1C: EYE MEDICATION(S): ATs prn daily warm compresses in am VISION AND REFRACTION: Current Rx with last BCVA: OD:+0.25 -2.50 x083 20/20-1 OS:-0.75 -1.00 x040 20/20-1 ADD:+2.50 OU 20/20 PD:70 DVA ( XX )sc ( )cc OD:20/60 OS:20/25- NV OU:20/25 Manifest Refraction (MRx): OD:+1.00 -2.75 x083 20/20-1 OS:-1.25 -1.25 x40 20/20 ADD: +2.50 OU 20/20 Intraocular Pressure (IOP) Method: Icare Time:12:56pm OD:14 OS:15 Pupils: PERRL (-)APD 2.5mm-2.0mm OU EOMs: SAFE OU,(-)Pain/Diplopia CVF(facial, peripheral): FTFC OU ANTERIOR CHAMBER (AC) Penlight or slit lamp (if available) exam appears unremarkable. Pupils are dilated. Dilation and driving precautions reviewed with patient and patient expresses understanding. Medication: 1% Tropicamide, 2.5% Phenylephrine OU Time:1:05pm Visual Imaging Performed Today: HVF and OCT Additional Comments:DVO clear, DVO sun, NVO clear will duplicate frames. Suicide Screen: C-SSRS Screening [place]-Suicide Severity Rating Scale (C-SSRS Screener) 1. Over the past month, have you wished you were or wished you could go to sleep and not wake up? No 2. Over the past month, have you had any actual thoughts of killing yourself? No 3. Over the past month, have you been thinking about how you might do this? Response not required due to responses to other questions. 4. Over the past month, have you had these thoughts and had some intention of acting on them? Response not required due to responses to other questions. 5. Over the past month, have you started to work out or worked out the details of how to kill yourself? Response not required due to responses to other questions. 6. If yes, at any time in the past month did you intend to carry out this plan? Response not required due to responses to other questions. 7. In your lifetime, have you ever done anything, started to do anything, or prepared to do anything to end your life (for example, collected pills, obtained a gun, gave away valuables, went to the roof but didn't jump)? No 8. If YES, was this within the past 3 months? Response not required due to responses to other questions. /yodit/ YENI DAHL [facility] TECHINICIAN Signed: 04/03/2024 13:09 YENI DAHL [facility] [place] [facility]
--- OUTSIDE RECORDS SUMMARY | 2024-04-23 14:36 | XMS_ITS | Continuity of Care Document ---
Author Name [facility] Organization [facility] Care Team Providers Care Can Top Setter Name Role Phone [facility] Unavailable Unavailable Problems Combined list of problems from Department of Defense and Veterans Affairs facilities. It does not include entries that were removed or entered in error. Problem Status Onset Date Problem Type Date of Resolution Comments Source Adjustment disorder Active Condition [facility] Alcohol abuse, unspecified drinking behavior (ICD-9-CM 305.00) Active Condition [facility] Allergic rhinitis * (ICD-9-CM 477.9) Active Condition [place] Amaurosis Fugax (ICD-9-CM 362.34) Active Condition [facility] Benign essential hypertension (SNOMED CT 4376981) Active Condition [facility] Chronic post-traumatic stress disorder (SNOMED CT 233976689) Active Condition [facility] Essential hypertension Active Condition [place] Hearing loss (SNOMED CT 82314807) Active Condition [facility] Tinnitus (SNOMED CT 17733963) Active Condition [facility] Tinnitus * (ICD-9-CM 388.30) Active Condition [facility] IE Posttraumatic Stress Disorder * (ICD-9-CM 309.81) Inactive Condition 06/15/2013 [facility] [place] Diagnosis: ICD-10-CM Z46.0 Encounter for fit/adjst of spectacles and contact lenses Active Diagnosis [facility] Diagnosis: ICD-10-CM G45.3 Amaurosis fugax Active Diagnosis [facility] Diagnosis: ICD-10-CM H40.013 Open angle with borderline findings, low risk, bilateral Active Diagnosis [facility] Diagnosis: ICD-10-CM H53.121 Transient visual loss, right eye Active Diagnosis [facility] Medications Combined list of outpatient medications from Department of Defense and Veterans Affairs facilities.Medications provided include 1) outpatient medications from the last 15 months, and 2) patient-reported medications. Medication Details Route Status Patient Instructions Prescription Expires Prescription Number Last Dispense Date Ordering Provider Order Date Order Qty Source ASPIRIN 81MG TAB,EC TAKE ONE TABLET BY MOUTH DAILY ORAL ACTIVE EDUARDOJOE MICHELLE 2011 [place] CARBOXYMETH YLCELLULOSE NA 0.5% SOLN,OPH INSTILL 1 DROP INTO EACH EYE FOUR TIMES A DAY FOR DRY EYE OPHTHA LMIC 03/25/2024 [id number] ADKINS,LAC EY J 2022 45 [facility] LISINOPRIL 40MG TAB TAKE ONE TABLET BY MOUTH DAILY ORAL ACTIVE EDUARDO,JOE MICHELLE 2011 [place] ZOLPIDEM TARTRATE 10MG TAB TAKE ONE TABLET BY MOUTH ONCE DAILY NEEDED ORAL ACTIVE EDUARDO,JOE MICHELLE 2010 [facility] Allergies, Adverse Reactions, Alerts Combined list of allergies from Department of Defense and Veterans Affairs facilities. It does not include entries that were removed or entered in error. Substance Category Reaction Severity Reaction type Status Date Reported Comments Source [place] Propensity to adverse reactions to drug (finding) Anaphylaxis active 4 [facility] Immunizations Combined list of available immunizations from the Department of Defense and Veterans Affairs facilities. Immunization Series Date Given Administered By Site Reaction Lot Number CVX Code Drug Speech Therapist Status Comments Source COVID-19 (MODERNA), MRNA, LNP-S, PF, 100 MCG/0.5 ML DOSE 2 2020 207 complet ed MOD; [id number]; [place] COVID-19 (MODERNA), MRNA, LNP-S, PF, 100 MCG/0.5 ML DOSE 1 2020 207 complet ed MOD; [id number]; [place] TD(ADULT) UNSPECIFIED FORMULATION 2010 139 complet ed [facility] DTAP, UNSPECIFIED FORMULATION 2009 107 complet ed [facility] TD(ADULT) UNSPECIFIED FORMULATION 2009 139 complet ed [facility] FLU,3 YRS (HISTORICAL) 2009 88 complet ed [facility] [facility] Encounters Combined list of: 1) Encounters from Department of Veterans Affairs facilities going back up to thelast 18 months. 2) Encounters from the Department of Defense facilities going back up to 280 months. Location Location Details Encounter Type Encounter Number Reason For Visit Attending Provider ADM Date DC Date Status Disposition Source [place] [facility] VISUAL FIELD EXAMINATIO N(S) [id number] Diagnos is: ICD-10- CM H40.013 Open angle with borderl ine finding s, low risk, bilater al
ADKINS,LACE Y J 03/25 [place] [facility] [place] [facility] [place] [facility] [place] [place] [facility] CMPTR OPHTH IMG OPTIC NERVE [id number] Diagnos is: ICD-10- CM H40.013 Open angle with borderl ine finding s, low risk, bilater al
ADKINS,LACE Y J 03/25 [place] [facility] [place] [facility] [place] [facility] EYE EXAM&TX ESTAB PT 1/>VST [id number] Diagnos is: ICD-10- CM H53.121 Transie nt visual loss, right eye<br/ > ADKINS,LACE Y J 03/25 [place] [facility] [place] [place] [facility] Outpatient Encounter [id number] 03/25 [place] [facility] [place] [place] [facility] [place] [facility] FIT SPECTACLES MONOFOCAL [id number] Diagnos is: ICD-10- CM Z46.0 Encount er for fit/adj st of spectac les and contact lenses< br/> ADKINS,LACE Y J 03/25 [place] [facility] [place] [place] [facility] EXTENDED VISUAL FIELD XM [id number] Diagnos is: ICD-10- CM H40.013 Open angle with borderl ine finding s, low risk, bilater al
ADKINS,LACE Y J 04/03 [facility] CMPTR OPHTH IMG OPTIC NERVE [id number] Diagnos is: ICD-10- CM H40.013 Open angle with borderl ine finding s, low risk, bilater al
ADKINS,LACE Y J 04/03 [facility] [place] [place] 1 [id number] Diagnos is: ICD-10- CM G45.3 Amauros is fugax<b r/> ADKINS,LACE Y J 04/03 [facility] FIT SPECTACLES MONOFOCAL [id number] Diagnos is: ICD-10- CM Z46.0 Encount er for fit/adj st of spectac les and contact lenses< br/> ADKINS,LACE Y J 04/03 [facility] [place] [facility] Social History Combined list of available smoking, tobacco, and other social history from Department of Defense and Veterans Affairs facilities. Social History Type Response Date Comment Sourc e Tobacco smoking status [facility] QUIT TOBACCO USE > 7 YEARS AGO 09/08/2011 Patient quit 7 years ago. [place] History of tobacco use QUIT TOBACCO USE 1-7 YEARS AGO 09/07/2010 [place] History of tobacco use QUIT TOBACCO USE 1-7 YEARS AGO 07/27/2010 [place] Advance Directives List of completed, amended, or rescinded Advance Directives on record at Department of Veterans Affairs facilities. An actual copy of the Directive is not included. Date Advance Directive Provider Source 10/10/2013 ADVANCE DIRECTIVE DISCUSSION SHANEL BATES AM [facility]
== END 2024-04-23 13:52 | disposition home or self-care (01) ==
PROVIDERS: PCP Internal Medicine; Visit Provider Internal Medicine Cardiovascular Disease
DX: I48.19 Other persistent atrial fibrillation (principal); I10 Essential (primary) hypertension
CPT/HCPCS: 93010; 99214

== ENCOUNTER 2024-10-29 12:42 | Outpatient (AMB) | payer MEDICARE, BC, SELFPAY ==
--- OUTSIDE RECORDS SUMMARY | 2024-10-29 08:33 | XMS_ITS | Continuity of Care Document ---
Author Name [facility] Organization [facility] Care Team Providers Care Associate Entertainment Editor Name Role Phone [facility] Unavailable Unavailable Problems Combined list of problems from Department of Defense and Veterans [facility] facilities. It does not include entries that were removed or entered in error. Problem Status Onset Date Problem Type Date of Resolution Comments Source Adjustment disorder Active Condition [facility] Alcohol abuse, unspecified drinking behavior (ICD-9-CM 305.00) Active Condition [place] [facility] Allergic rhinitis * (ICD-9-CM 477.9) Active Condition [place] Amaurosis Fugax (ICD-9-CM 362.34) Active Condition [facility] Benign essential hypertension (SNOMED CT 0405045) Active Condition [facility] Chronic post-traumatic stress disorder (SNOMED CT 074873749) Active Condition [facility] Essential hypertension Active Condition [place] Hearing loss (SNOMED CT 35809333) Active Condition [facility] Tinnitus (SNOMED CT 90136675) Active Condition [facility] Tinnitus * (ICD-9-CM 388.30) Active Condition [facility] Posttraumatic Stress Disorder * (ICD-9-CM 309.81) Inactive Condition 06/15/2013 [facility] Diagnosis: ICD-10-CM Z46.0 Encounter for [...] ONE TABLET BY MOUTH DAILY ORAL ACTIVE JOE CLARK 2011 [place] LISINOPRIL 40MG TAB TAKE ONE TABLET BY MOUTH DAILY ORAL ACTIVE JOE CLARK 2011 [place] ZOLPIDEM TARTRATE 10MG TAB TAKE ONE TABLET BY MOUTH ONCE DAILY NEEDED ORAL ACTIVE JOE CLARK 2010 [place] Allergies, Adverse Reactions, Alerts Combined list of allergies from Department of [facility] and Veterans Affairs facilities. It does not include entries that were removed or entered in error. Substance Category Reaction Severity Reaction type Status Date Reported Comments Source P[place] Propensity to adverse reactions to drug (finding) Anaphylaxis active 4 [facility] Immunizations Combined list of available immunizations from the Department of [facility] facilities. Immunization Series Date Given Administered By Site Reaction Lot Number CVX Code Drug Reference Assistant Status Comments Source COVID-19 (MODERNA), MRNA, LNP-S, PF, 100 MCG/0.5 ML DOSE 2 2020 207 complet ed MOD; [id number]; [place] COVID-19 (MODERNA), MRNA, LNP-S, PF, 100 MCG/0.5 ML DOSE 1 2020 207 complet ed MOD; [id number]; 1 [place] TD(ADULT) UNSPECIFIED FORMULATION 2010 139 complet ed [facility] DTAP, UNSPECIFIED FORMULATION 2009 107 complet ed [facility] TD(ADULT) UNSPECIFIED FORMULATION 2009 139 complet ed [facility] FLU,3 YRS (HISTORICAL) 2009 88 complet ed [facility] Encounters Combined list of: 1) Encounters from Department of Veterans Affairs facilities going backup to the last 18 months, not all VA inpatient encounters are included; 2) Encounters from the Department of [facility] facilities going backup to 280 months. Location Location Details Encounter Type Encounter Number Reason For Visit Attending Provider ADM Date DC Date Status Disposition Source [place] [facility] [place] [id number] Diagnos is: ICD-10- CM H40.013 Open angle with borderl ine finding s, low risk, bilater al ADKINS,LACE Y J 04/03 [place] [facility] [place] [place] [facility] [place] [facility] CMPTR OPHTH IMG OPTIC NERVE [id number] 1. Diagnos is: ICD-10- CM H40.013 Open angle with borderl ine finding s, low risk, bilater al ADKINS,LACE Y J 04/03 [place] [facility] [place] [place] [facility] [place] [facility] [place] 1/ [id number] 1. Diagnos is: ICD-10- CM G45.3 Amauros is fugax ADKINS,LACE Y J 04/03 [place] [facility] [place] [facility] [place] [facility] FIT SPECTACLES MONOFOCAL [id number] Diagnos is: ICD-10- CM Z46.0 Encount er for fit/adj st of spectac les and contact lenses ADKINS,LACE Y J 04[facility] Outpatient Encounter [id number] [facility] Social History Combined list of available smoking, tobacco, and other social history from Department of Defense and Veterans Affairs facilities. Social History Type Response Date Comment Sour e Tobacco smoking status [facility] QUIT TOBACCO USE > 7 YEARS AGO 09/08/2011 Patient quit 7 years ago. [place] History of tobacco use QUIT TOBACCO USE 1-7 YEARS AGO 09/07/2010 [place] History of tobacco use QUIT TOBACCO USE 1-7 YEARS AGO 07/27/2010 [place] Plan of Care List of future care activities from [facility] of Veterans Affairs facilities. Additional future care activities may be listed in the Assessment and Plan section. Date/Time Care Activity Care Activity Detail Facili ty 04/23/2025 [facility] Advance Directives List of completed, amended, or rescinded Advance Directives on record at Department of Veterans [facility] facilities. An actual copy of the Directive is not included. Date Advance Directive Provider Source 10/10/2013 ADVANCE DIRECTIVE DISCUSSION SHANEL BATES AM [facility]
--- NOTE | 2024-10-29 12:53 | A.OFFVIS_ITS ---
Vital Signs 10/29/24 12:55 Height 5 ft 10 in Weight 205 lb 0.478 oz BMI 29.4 BP 110/62 Blood Pressure Location Lt brachial Position Sitting Pulse 84 Pulse Source Pulse Oximeter Intake Visit Reasons: 6 mth f/up Intake Note: 6 mth f/up Uat Tester Required: No Accompanied by: Self / Same As Patient Allergies Penicillins Adverse Reaction (Severe, Verified 04/06/23 14:14) Unresponsive Medication List - Last Reconciled 10/29/24 by Demario Stanford MD apixaban (Eliquis) 5 mg PO BID epinephrine IM hydrochlorothiazide 12.5 mg PO QAM ibuprofen 600 mg PO TID PRN lisinopril 30 mg PO DAILY metoprolol tartrate 12.5 mg (1/2 x 25 mg) PO BID omeprazole 20 mg PO QAM HPI Comments Details: 73-year-old gentleman with background history of hypertension who was referred to us for new diagnosis of atrial fibrillation. He developed nausea vomiting and abdominal discomfort. He went to the urgent care where EKG showed atrial fibrillation. He was asymptomatic from atrial fibrillation point of view. He was started on metoprolol and apixaban. He denies chest discomfort, shortness of breath or any symptoms/signs of heart failure. We sent him for echocardiography which showed ejection fraction of 55-60%. On follow-up he continues to be stable and has no symptoms. Blood pressure control is good. Taking medications regularly. We decided to treat him with rate control strategy. He returns for follow-up after many months and continues to be asymptomatic. No chest discomfort shortness of breath. No palpitations. No orthopnea PND. No peripheral edema. 04/06/2023: He returns for follow-up. He had infection in his gums and teeth and had pus with bleeding recently. He has seen dentist and he has been told that he needs multiple teeth extracted. Being on apixaban he has been told that he needs to hold it for 2 weeks by 1 office and 1 week by another dental office. He is saying that he is quite anxious about this because he wants his teeth to be removed specially with infection. He has been taking apixaban 5 mg twice a day. Previously had an echocardiogram which showed normal biventricular function. No clinical symptoms of heart failure. 07/18/2023: He returns for follow-up. He had initial workup and has been doing well. He is on apixaban 5 mg twice a day and metoprolol 12.5 mg twice a day. His heart rate is in 80s blood pressure is 112/62. Clinically he is denying any symptoms right now. He had blood workup recently which was also essentially normal. His LDL cholesterol was 110 and I have advised him to continue to diet and exercise. 04/23/2024: He is here for follow-up. You medications regularly. No symptoms on follow-up. He is due to get colonoscopy and is asking whether he can hold the Eliquis for 48 hours. 10/29/2024: He is here for follow-up. He is denying any palpitations. No shortness of breath. He said that when he is working in the garden and kneeling down after standing up he gets dizzy. This is for few sec. he is saying that he drinks a lot of water. Otherwise denying any other symptoms. [facility] Surgical History History of herniorrhaphy History of total hip arthroplasty Family History Mother Afib Cancer Father Cancer Leukemia Social History Alcohol intake: former Year quit: 2013 Patient Tobacco Use Status: Former Tobacco user Review of Systems Const Denies chills, Denies fatigue, Denies fever(s), Denies frequent falls, Denies weakness, Denies weight gain and Denies weight loss ENT Denies dizziness Card Denies chest pain, Denies leg edema, Denies lightheadedness, Denies palpitations, Denies dyspnea and Denies dyspnea on exertion Resp Denies cough, Denies dyspnea and Denies dyspnea on exertion GI Denies hematochezia Musc Denies abnormal gait, Denies muscle weakness, Denies numbness, Denies radiating pain into limb and Denies tingling Neuro Denies abnormal gait, Denies dizziness, Denies frequent falls, Denies numbness, Denies tingling and Denies weakness Endo Denies fatigue and Denies palpitations Physical Exam Vital Signs: Last Vital Signs Pulse 84 10/29/24 12:55 BP 110/62 10/29/24 12:55 BMI result Body Mass Index 29.4 Assessment & Plan Assessment & Plan (1) Essential hypertension: Code(s): I10 - Essential (primary) hypertension Category: Medical (2) Persistent atrial fibrillation: Code(s): I48.19 - Other persistent atrial fibrillation Category: Medical Plan Pleasant 73 year gentleman who has persistent atrial fibrillation. He is asymptomatic currently and we are obtain a rate control strategy. He is on very low dose metoprolol currently. He is on apixaban for anticoagulation. He is taking metoprolol, lisinopril and hydrochlorothiazide. His blood pressure is 110/60 and has been getting dizziness when working in the garden. I think this is related to heat and dehydration although he is saying that he drinks lot of water. I think we should hold the hydrochlorothiazide for now and I have explained that with the patient. He will see us back in 6 months. Thank you for allowing me to participate in the care of your patient. Please feel free to contact me if you have any questions. Coding Level of Care Code Est Pt Level 4 (25630) Diagnoses Essential hypertension I10 Persistent atrial fibrillation I48.19
[2024-10-29 12:55] VITALS: BP 110/62; PULSE 84; BMI 29.4
--- OUTSIDE RECORDS SUMMARY | 2024-10-29 13:35 | XMS_ITS | Encounter Summary ---
Author Organization [facility] Address [address] [place] [address] Care Team Providers Care Quantitative Consultant Name Role Phone ConyPhilipp farley Primary Care Provider [phone] Encounter Details Date Type Department Care Team (Late st Contact Info) Description 07/10/2024 Lab Requisition [facility] [address] [facility] [address] Ezekiel Conley [address] [place] [phone] Urinary tract infection, site not specified; Hematuria, unspecified Social History Tobacco Use Types Packs/Day Years Used Date Smoking Tobacco: Former Cigarettes Smokeless Tobacco: Never Alcohol Use Standard Drinks/Week Comments Not Currently 0 (1 standard drink = 0.6 oz pur e alcohol) Interpersonal Safety Answer Date Record ed Physical Abuse 05/10/2024 Verbal Abuse 05/10/2024 Sex and Gender Information Value Date Recorded Sex Assigned at Not on file Legal Sex Male 12:58 PM EST Gender Identity Not on file Sexual Orientation Not on file documented as of this encounter Plan of Treatment Not on file documented as of this encounter Procedures Procedure Name Priority Date/Time Associated Diagnosis Comments URINALYSIS WITH REFLEX MICROSCOPIC Routine 07/10/2024 3:30 PM EDT Urinary tract infection, site not specified Hematuria, unspecified URINALYSIS WITH REFLEX MICROSCOPIC Routine 07/10/2024 3:30 PM EDT Urinary tract infection, site not specified Hematuria, unspecified CULTURE URINE Routine 07/10/2024 3:30 PM EDT Urinary tract infection, site not specified Hematuria, unspecified documented in this encounter Results * Urinalysis with reflex microscopic (07/10/2024 3:30 PM EDT) Specific [place] Urine 1.013 1.003 - 1.030 LAB URINALYSIS - AUTOMATED METHOD [facility], Urine 6.0 5.0 - 8.0 pH LAB URINALYSIS - AUTOMATED METHOD 07/10/2024 8:24 PM [facility] Leukocytes, Urine Negative Negative LAB URINALYSIS - AUTOMATED METHOD 07/10/2024 8:24 PM [facility] Nitrite, Urine Negative Negative LAB URINALYSIS - AUTOMATED METHOD 07/10/2024 8:24 PM [facility] Protein, Urine Negative <=Trace mg/dL LAB URINALYSIS - AUTOMATED METHOD 07/10/2024 8:24 PM [facility] Glucose, Urine Negative Negative mg/dL LAB URINALYSIS - AUTOMATED METHOD 07/10/2024 8:24 PM [facility] Ketones, Urine Negative Negative mg/dL LAB URINALYSIS - AUTOMATED METHOD 07/10/2024 8:24 PM [facility] Urobilinogen, Urine 0.2 0.2 - 1.0 mg/dL LAB URINALYSIS - AUTOMATED METHOD 07/10/2024 8:24 PM [facility] Bilirubin, Urine Negative Negative LAB URINALYSIS - AUTOMATED METHOD 07/10/2024 8:24 PM [facility] Blood, Urine Negative Negative LAB URINALYSIS - AUTOMATED METHOD 07/10/2024 8:24 PM [facility] Urine Urine specimen obtained by clean catch procedure / Unknown 07/10/2024 3:30 PM EDT 07/10/2024 7:22 PM EDT [facility] LAB URINE ORDERABLES Final Resul t Performing Organization Address City/[facility]/ZIP Co de Phone Number [facility] [address] [place] [address], [place] [phone] * Culture urine (07/10/2024 3:30 PM EDT) Culture, Urine No growth 07/11/2024 1:13 PM EDT [facility] Urine Urine specimen obtained by clean catch procedure / Unknown 07/10/2024 3:30 PM EDT 07/10/2024 7:22 PM EDT [facility]3] LAB MICROBIOLOGY - GENERAL ORDER SHAKILA Final Result Performing Organization Address [facility] Co de Phone Number [facility] [address] [place] [address], [place] [phone] documented in this encounter Visit Diagnoses Diagnosis Urinary tract infection, site not specified Hematuria, unspecified documented in this encounter Care Teams Quantitative Consultant Relationship Specialty Start Date End Date Philipp Lira DO [address] [place] [phone] PCP - General Internal Medicine 04/13/24 documented as of this encounter
== END 2024-10-29 13:15 | disposition home or self-care (01) ==
PROVIDERS: PCP Internal Medicine; Visit Provider Internal Medicine Cardiovascular Disease
DX: I10 Essential (primary) hypertension (principal); I48.19 Other persistent atrial fibrillation
CPT/HCPCS: 99214

== ENCOUNTER → 2024-10-29 12:42 | Outpatient (BNVA) | payer MEDICARE, BC, SELFPAY | PROVIDERS: PCP Internal Medicine; Visit Provider Internal Medicine Cardiovascular Disease | DX: I48.19 Other persistent atrial fibrillation (principal); I10 Essential (primary) hypertension; Z79.01 Long term (current) use of anticoagulants; Z79.899 Other long term (current) drug therapy | CPT/HCPCS: 99212 ==